=== PATIENT | male | born 1990 | race Caucasian/White ===

== ENCOUNTER → 2019-02-26 | Outpatient (CLI) | payer OTHER ==
--- NOTE | 2019-02-27 07:50 | XR ---
EXAMINATION TYPE: XR chest 2V DATE OF EXAM: 02/26/2019 COMPARISON: Prior chest x-ray 02/21/2013 HISTORY: Renal cell carcinoma TECHNIQUE: Frontal and lateral views of the chest are obtained. FINDINGS: There is no focal air space opacity, pleural effusion, or pneumothorax seen. The cardiac silhouette size is within normal limits. The osseous structures are intact. Mild elevation of the r ight hemidiaphragm was noted on prior exam. IMPRESSION: No acute cardiopulmonary process.
== END | disposition home or self-care (01) ==
LOC: LABWHC1 07:04
PROVIDERS: ATTEND Urology
DX: C62.91 Malignant neoplasm of right testis, unspecified whether descended or undescended (principal)
CPT/HCPCS: 36415; 71046; 82105; 83615

== ENCOUNTER 2021-06-06 00:38 | Emergency (ER) | payer BC, OTHER ==
[2021-06-06 00:43] VITALS: TEMP 97.9
[2021-06-06] MEDS ORDERED: SODIUM CHLORIDE 0.9% 1,000 ML IV STA (00:55)
--- NOTE | 2021-06-06 00:56 | ED ---
Chest Pain HPI - General Chief Complaint: Chest Pain Stated Complaint: Chest Pain Time Seen by Provider: 06/06/21 00:51 Source: patient, RN notes reviewed, old records reviewed Mode of arrival: ambulatory Limitations: no limitations - History of Present Illness Initial Comments: This is a 31-year-old male to the emergency department for evaluation of chest pain 2 days of chest pain left-sided chest pain left back left shoulder left arm.. Patient has been going on for 2 days. Also abdominal pain back pain shoulder pain left arm pain. No traumas no fevers no cough or congestion of travel history no sick contacts no dysuria no problem bowel movements. MD Complaint: chest pain -: days(s) Onset: during rest, during exertion Pain Location: left chest Pain Radiation: LUE Severity: moderate Quality: sharp Consistency: constant Improves With: nothing Worsens With: nothing Anginal Symptoms: dyspnea Other Symptoms: palpitations Treatments Prior to Arrival: none - Related Data Allergies Allergy/AdvReac Type Severity Reaction Status Date / Time No Known Allergies Allergy Verified 06/06/21 00:43 Review of Systems ROS Statement: Those systems with pertinent positive or pertinent negative responses have been documented in the HPI. ROS Other: All systems not noted in ROS Statement are negative. EKG Findings - EKG Comments: EKG Findings:: EKG sinus tachycardia 108 OK 149 QRS 73 QTC 388 Past Medical History Additional Past Medical History / Comment(s): testicular cancer History of Any Multi-Drug Resistant Organisms: None Reported Past Psychological History: No Psychological Hx Reported Smoking Status: Never smoker Past Alcohol Use History: Occasional Past Drug Use History: None Reported General Exam General appearance: alert, in no apparent distress, anxious Head exam: Present: atraumatic, normocephalic, normal inspection Eye exam: Present: normal appearance, PERRL, EOMI. Absent: scleral icterus, conjunctival injection, periorbital swelling ENT exam: Present: normal exam, mucous membranes moist Neck exam: Present: normal inspection. Absent: tenderness, meningismus, lymphadenopathy Respiratory exam: Present: normal lung sounds bilaterally. Absent: respiratory distress, wheezes, rales, rhonchi, stridor Cardiovascular Exam: Present: normal rhythm, tachycardia, normal heart sounds. Absent: systolic murmur, diastolic murmur, rubs, gallop, clicks GI/Abdominal exam: Present: soft, normal bowel sounds. Absent: distended, tenderness, guarding, rebound, rigid Extremities exam: Present: normal inspection, full ROM, normal capillary refill. Absent: tenderness, pedal edema, joint swelling, calf tenderness Back exam: Present: normal inspection Neurological exam: Present: alert, oriented X3, CN II-XII intact Psychiatric exam: Present: normal affect, normal mood Skin exam: Present: warm, dry, intact, normal color. Absent: rash Course Vital Signs 06/06/21 06/06/21 00:39 02:09 Temperature 97.9 F Pulse Rate 109 H 80 Respiratory 19 18 Rate Blood Pressure 147/96 145/92 O2 Sat by Pulse 98 98 Oximetry - Reevaluation(s) Reevaluation #1: 06/06/21 03:20 Medical record is reviewed Reevaluation #2: 06/06/21 03:20 Patient's pain is improved Reevaluation #3: 06/06/21 03:20 Patient informed results and questions answered Reevaluation #4: Studies CT angios chest is negative for acute disease Chest Pain MDM - MDM 31 male with nonspecific pain chest pain back pain shoulder pain. No acute findings for patient's symptoms and can be discharged home Disposition Clinical Impression: Chest pain, Atypical chest pain, Abdominal pain Disposition: HOME SELF-CARE Condition: Good Instructions (If sedation given, give patient instructions): Chest Pain (ED), Abdominal Pain (ED) Is patient prescribed a controlled substance at d/c from ED?: No Referrals: Jp Strauss MD [Primary Care Provider] - 1-2 days
[2021-06-06 01:19] LABS: Basophils % (A) 0 %; Eosinophils # (A) 0.6 k/uL (0-0.7); Eosinophils % (A) 8 %; HCT 43.6 % (39.0-53.0); HGB 15.1 gm/dL (13.0-17.5); Lymphocytes % (A) 14 %; MCH 28.7 pg (25.0-35.0); MCHC 34.7 g/dL (31.0-37.0); MCV 82.8 fL (80.0-100.0); Mean Platelet Volume 6.8; Monocytes # (A) 0.3 k/uL (0-1.0); Monocytes % (A) 5 %; Neutrophils # (A) 5.2 k/uL (1.3-7.7); Neutrophils % (A) 72 %; Platelet Count 275 k/uL (150-450); RBC 5.27 m/uL (4.30-5.90); WBC 7.2 k/uL (3.8-10.6)
[2021-06-06] MEDS ORDERED: MORPHINE SULFATE 4 MG/ML SYRINGE IVP STA (01:31)
[2021-06-06] MEDS ORDERED: KETOROLAC 15 MG/ML 1 ML VIAL IVP STA (01:31)
[2021-06-06] MEDS ORDERED: ONDANSETRON 4 MG/2 ML VIAL IVP STA (01:31)
--- NOTE | 2021-06-06 01:33 | CT ---
EXAMINATION TYPE: CT angio chest DATE OF EXAM: 06/06/2021 COMPARISON: None HISTORY: R/O PE CT DLP: 613.20 mGycm Automated exposure control for dose reduction was used. CONTRAST: Performed with IV Contrast, patient injected with 70 mL of Isovue 370. Images obtained from the thoracic inlet to the diaphragm with IV contrast. There are Three-D postproc essed images. The lungs are clear of infiltrate. There is no pleural effusion. There is no mediastinal adenopathy. There is no pericardial effusion. Thoracic aorta is intact. No aneurysm or dissection. There is 1.5 cm right bronchial lymph node. There is normal contrast opacification of the pulmonary a rteries. There are no filling defects. The thoracic spine is intact. There is no compression fracture. Sternum is intact. The upper abdomina l soft tissues appear intact. IMPRESSION: Negative CT scan of the chest. No evidence of pulmonary embolism.
[2021-06-06 01:35] LABS: Potassium 3.5 mmol/L (3.5-5.1)
[2021-06-06 01:36] LABS: ALT 58 U/L (4-49); AST 35 U/L (17-59); African American GFR (CKD) >90 (>60 ml/min/1.73 sqM); Albumin 4.6 g/dL (3.5-5.0); Alkaline Phosphatase 62 U/L (38-126); Anion Gap 11 mmol/L; Blood Urea Nitrogen 18 mg/dL (9-20); Calcium 9.1 mg/dL (8.4-10.2); Carbon Dioxide 23 mmol/L (22-30); Chloride 103 mmol/L (98-107); Glucose 151 mg/dL (74-99); Lipase 94 U/L (23-300); Magnesium 1.8 mg/dL (1.6-2.3); Non-African American GFR(CKD) >90 (>60 ml/min/1.73 sqM); Sodium 137 mmol/L (137-145); Total Bilirubin 0.9 mg/dL (0.2-1.3); Total Protein 7.6 g/dL (6.3-8.2)
[2021-06-06 01:38] LABS: INR 0.9 (<1.2); Partial Thromboplastin Time 26.2 sec (22.0-30.0); Prothrombin Time 10.1 sec (9.0-12.0)
[2021-06-06 02:10] VITALS: RESP 18
[2021-06-06 03:09] LABS: C Reactive Protein 4.7 mg/dL (<1.0)
[2021-06-06 03:32] VITALS: BP 140/85; PULSE 72
== END 2021-06-06 03:35 | disposition home or self-care (01) ==
LOC: EC 00:38
DX: R07.89 Other chest pain (principal); R10.9 Unspecified abdominal pain
CPT/HCPCS: 36415; 85379; 83880; 80053; 83615; 83690; 83735; 84484; 85025; 85610; 85730; 86140; 71275; 99285; 96374; 96375; 96361; J2270; J2405; J1885; Q9967

== ENCOUNTER → 2022-04-04 | Outpatient (CLI) | payer BC | END | disposition home or self-care (01) | LOC: LABWHC1 15:18 | PROVIDERS: ATTEND Urology | DX: C62.90 Malignant neoplasm of unspecified testis, unspecified whether descended or undescended (principal) | CPT/HCPCS: 36415; 82105; 83615 ==

== ENCOUNTER → 2022-04-05 | Outpatient (CLI) | payer BC ==
--- NOTE | 2022-04-05 18:05 | US ---
EXAMINATION TYPE: US scrotum with doppler. Grayscale and color Doppler Duplex imaging performed of leonidas mendiola scrotum. DATE OF EXAM: 04/05/2022 COMPARISON: NONE CLINICAL HISTORY: C62.9 TESTIS CA. Hx of testicular cancer 10 years ago and had the right testical re moved. Patient states he has been having pain x [address] felt a lump. EXAM MEASUREMENTS: TESTICLES: Left Testicle: 4.5 x 3.3 x 2.6 cm Right Testicle: Surgically removed EPIDIDYMIS HEAD: Left Epididymis: Surgically removed Right Epididymis: 1.1 cm Doppler performed to assess for testicular vascularity; good bilateral color flow and waveforms are s een. There is no evidence of testicular torsion. Presence of hydroceles: Small one on left side Presence of varicoceles: No Isoechoic mass with vascularity visualized in mid left testicle measuring 3.4 x 2.4 x 1.9cm IMPRESSION: There is a solid rounded mass in the left testicle suspicious for tumor. Follow-up is recommended.
== END | disposition home or self-care (01) ==
LOC: RADUSWWP 17:06
PROVIDERS: ATTEND Urology
DX: N50.89 Other specified disorders of the male genital organs (principal); C62.90 Malignant neoplasm of unspecified testis, unspecified whether descended or undescended
CPT/HCPCS: 76870; 93975

== ENCOUNTER → 2022-04-10 | Outpatient (CLI) | payer BC ==
--- NOTE | 2022-04-10 15:49 | CT ---
EXAMINATION TYPE: CT ChestAbdPelvis w con CT DLP: 1769.9 mGycm, Automated exposure control for dose reduction was used. DATE OF EXAM: 04/10/2022 3:18 PM COMPARISON: CTA chest 06/06/2021, scrotal ultrasound 04/05/2022. CLINICAL INDICATION:Male, 32 years old with history of C62.10 MALIGNANT NEOPLASM OF UNSPECIFIED DESCE NDED; [facility], Hx of right side testicular CA. Testicle was removed. Now pt had Left side testicular CA. Technique: Multiple axial images of the chest, abdomen, and pelvis were obtained following the intrav enous administration of 70 mL Isovue-300. Oral contrast was administered. Two-dimensional coronal and sagittal reconstructions were obtained. Findings: CHEST: LUNGS/ PLEURA: No pleural effusion, pneumothorax, focal consolidation. No suspicious pulmonary nodule or mass. AIRWAY: Patent and unremarkable.. HEART: Size within normal limits. No pericardial effusion. MEDIASTINUM: No evidence of adenopathy. VASCULATURE: No aortic aneurysm. MUSCULOSKELETAL: No acute osseous abnormalities. No aggressive osseous lesion. SOFT TISSUES/LYMPH NODES: Unremarkable. LOWER NECK: No significant findings. ABDOMEN: ABDOMEN LIVER: Unremarkable GALLBLADDER AND BILE DUCTS: Gallbladder is contracted. No biliary duct dilatation. PANCREAS: Unremarkable. SPLEEN: Unremarkable. ADRENAL GLANDS: Unremarkable. KIDNEYS AND URETERS: No evidence of hydronephrosis or renal calculus. The ureters are unremarkable. PELVIS BLADDER: Unremarkable REPRODUCTIVE: Post surgical changes from right orchiectomy with left testicle demonstrated in the scr otal sac. ABDOMEN & PELVIS STOMACH AND BOWEL: Stomach and duodenum are unremarkable. Distal colonic diverticulosis without evide nce for acute diverticulitis. The appendix is within normal limits. No evidence of bowel obstruction. PERITONEUM: No evidence of pneumoperitoneum or free fluid. VASCULATURE: No evidence of aortic aneurysm. MUSCULOSKELETAL: No acute osseous abnormalities. No aggressive osseous lesion. LYMPH NODES: No pathologically enlarged lymph nodes greater than 1 cm short axis. No pathologic retro peritoneal or inguinal adenopathy. SOFT TISSUE/ABDOMINAL WALL: Tiny fat filled hernia. IMPRESSION: 1. No evidence for metastasis within the chest, abdomen and pelvis. 2. No pathologically enlarged lymph nodes.
== END | disposition home or self-care (01) ==
LOC: RADCTMAIN 13:28
PROVIDERS: ATTEND Urology
DX: C62.12 Malignant neoplasm of descended left testis (principal)
CPT/HCPCS: 71260; 74177; Q9967 ×2

== ENCOUNTER → 2022-04-11 | Outpatient (CLI) | payer BC ==
[2022-04-12 01:41] LABS: Basophils # (A) 0.11 X 10*3/uL (0.00-0.10); Basophils % (A) 1.4 %; Eosinophils # (A) 0.56 X 10*3/uL (0.04-0.35); Eosinophils % (A) 7.4 %; HCT 43.3 % (39.6-50.0); Immature Grans, Automated 0.4 %; Lymphocytes # (A) 2.05 X 10*3/uL (0.90-5.00); Lymphocytes % (A) 26.9 %; MCH 27.8 pg (27.0-32.0); MCHC 32.3 g/dL (32.0-37.0); MCV 86.1 fL (80.0-97.0); Mean Platelet Volume 9.5 fL (9.5-12.2); Monocytes # (A) 0.49 X 10*3/uL (0.20-1.00); Monocytes % (A) 6.4 %; NRBC Per 100 WBC 0 /100 WBCS (0.0-0.0); Neutrophils # (A) 4.37 X 10*3/uL (1.80-7.70); Neutrophils % (A) 57.5 %; Platelet Count 301 X 10*3/uL (140-440); RBC 5.03 X 10*6/uL (4.40-5.60); RDW 13.2 % (11.5-14.5); WBC 7.61 X 10*3/uL (4.50-10.00)
[2022-04-12 03:39] LABS: African American GFR (CKD) 113.3 (60.0-200.0); Albumin 4.7 g/dL (3.8-4.9); Albumin/Globulin Ratio 1.96 (1.60-3.17); Anion Gap 14.1 mmol/L (10.00-18.00); BUN/Creat Ratio 10.3 Ratio (12.00-20.00); Blood Urea Nitrogen 10.3 mg/dL (9.0-27.0); Calcium 9.6 mg/dL (8.7-10.3); Carbon Dioxide 24.9 mmol/L (20.0-27.5); Globulin 2.4 g/dL (1.6-3.3); Non-African American GFR(CKD) 97.8 (60.0-200.0); Potassium 4.1 mmol/L (3.5-5.5); Total Bilirubin 0.3 mg/dL (0.30-1.20); Total Protein 7.1 g/dL (6.2-8.2)
== END | disposition home or self-care (01) ==
LOC: LABPAT 14:31
PROVIDERS: ATTEND Urology
DX: Z01.812 Encounter for preprocedural laboratory examination (principal); C62.10 Malignant neoplasm of unspecified descended testis
CPT/HCPCS: 80053; 85025

== ENCOUNTER → 2022-09-22 | Outpatient (CLI) | payer BC ==
--- NOTE | 2022-09-22 12:46 | XR ---
EXAMINATION TYPE: XR chest 2V DATE OF EXAM: 09/22/2022 COMPARISON: 02/26/2019 TECHNIQUE: PA and lateral views submitted. HISTORY: Testicular cancer FINDINGS: The lungs are clear and there is no pneumothorax, pleural effusion, or focal pneumonia. Heart size normal and no overt failure. Osseous structures intact. IMPRESSION: 1. No acute process.
== END | disposition home or self-care (01) ==
LOC: RADXRMAIN 11:24
PROVIDERS: ATTEND Urology
DX: C62.10 Malignant neoplasm of unspecified descended testis (principal)
CPT/HCPCS: 71046

== ENCOUNTER → 2022-09-22 | Outpatient (CLI) | payer BC ==
[2022-09-22 21:00] LABS: ALT 35 U/L (10-49); AST 25 U/L (14-35); Albumin 4.9 d/dL (3.8-4.9); Albumin/Globulin Ratio 1.75 Ratio (1.60-3.17); Alkaline Phosphatase 67 U/L (41-126); Bilirubin, Conjugated <0.20 mg/dL (0.20-0.40); Bilirubin,Unconjugated >0.10 mg/dL (0.20-1.00); Estradiol 40.1 pg/mL; Globulin 2.8 d/dL (1.6-3.3); LDH 189 U/L (120-246); Total Bilirubin 0.3 mg/dL (0.3-1.2); Total Protein 7.7 d/dL (6.2-8.2)
[2022-09-22 21:45] LABS: HCT 48.5 % (39.6-50.0); HGB 15.6 d/dL (12.0-15.0); MCH 26.9 pg (27.0-32.0); MCHC 32.2 d/dL (32.0-37.0); MCV 83.8 FL (80.0-97.0); Mean Platelet Volume 10.2 FL (9.5-12.2); NRBC Per 100 WBC 0 X 10*3/uL (0.00-0.01); Platelet Count 344 X 10*3/uL (140-440); RBC 5.79 X 10*6/uL (4.40-5.60); RDW 13.1 % (11.5-14.5); WBC 5.63 X 10*3/uL (4.50-10.00)
== END | disposition home or self-care (01) ==
LOC: LABWHC1 11:18
PROVIDERS: ATTEND Urology
DX: C62.10 Malignant neoplasm of unspecified descended testis (principal); E29.1 Testicular hypofunction
CPT/HCPCS: 36415; 80076; 82105; 82670; 83615; 84402; 84403; 85027

== ENCOUNTER 2023-01-31 14:11 | Emergency (ER) | payer BC ==
[2023-01-31] MEDS ORDERED: PROPARACAINE 0.5% OPHTH DROPS 15 ML BTL BOTH EYES STA (14:52)
[2023-01-31] MEDS ORDERED: FLUORESCEIN STRIPS 1 MG STRIP BOTH EYES ONE (14:52)
[2023-01-31] MEDS ORDERED: DEXAMETHASONE SOD PHOSPHATE 10 MG/ML 1 ML VIAL IM STA (15:18)
--- NOTE | 2023-01-31 15:22 | ED ---
Eye Problem HPI - General Chief complaint: Eye Problems Stated complaint: post op-vision loss Time Seen by Provider: 01/31/23 14:40 Source: patient, family, RN notes reviewed Mode of arrival: ambulatory Limitations: no limitations - History of Present Illness Initial comments: This is a 33-year-old male who presents to the emergency department for bilate ral eye redness. States that he had hernia surgery yesterday and when he woke up this morning he developed pain and redness to both eyes. States that this made it difficult for him to open his eyes. He called the surgeon who advised taking Benadryl, and if that was not effective to come to the emergency department for further evaluation. Patient denies any history of this with prior surgeries. He would not describe the eyes as itchy, and describes them as burning. Unsure if he has visual changes or blurry vision, because he is having difficulty opening the eyes. He is not a contact lens wearer. Denies any injuries to the eyes or coming into contact with chemicals. MD chief complaint: eye pain, eye redness - Related Data Previous Rx's Medication Instructions Recorded HYDROcodone/APAP 5-325MG [[place] 1 - 2 tab PO Q4HR PRN #6 tab 04/13/22 5-325] Ketorolac [Toradol] 10 mg PO Q6HR PRN #10 tab 04/13/22 Allergies Allergy/AdvReac Type Severity Reaction Status Date / Time No Known Allergies Allergy Verified 01/31/23 14:17 Review of Systems ROS Statement: Those systems with pertinent positive or pertinent negative responses have been documented in the HPI. ROS Other: All systems not noted in ROS Statement are negative. Past Medical History Past Medical History: Cancer Additional Past Medical History / Comment(s): hx. testicular cancer right side- had surg. & lymph node dissection & chemo 13 yrs. ago, new dx. cancer left testicle History of Any Multi-Drug Resistant Organisms: None Reported Past Surgical History: Orthopedic Surgery Additional Past Surgical History / Comment(s): right orchiectomy &lymph node dissection, left rotator cuff repair Past Anesthesia/Blood Transfusion Reactions: No Reported Reaction Past Psychological History: No Psychological Hx Reported Smoking Status: Never smoker Past Alcohol Use History: Occasional Past Drug Use History: None Reported - Past Family History Mother Family Medical History: No Reported History General Exam Limitations: no limitations General appearance: alert, in no apparent distress Head exam: Present: atraumatic, normocephalic, normal inspection Eye exam: Present: PERRL, EOMI, other (Bilateral conjunctival injection.) Expanded IOP (R) in mmH IOP (L) in mmH IOP measured with: Tonopen Respiratory exam: Present: normal lung sounds bilaterally. Absent: respiratory distress, wheezes, rales, rhonchi, stridor Cardiovascular Exam: Present: regular rate, normal rhythm, normal heart sounds. Absent: systolic murmur, diastolic murmur, rubs, gallop, clicks Neurological exam: Present: alert, oriented X3, CN II-XII intact Psychiatric exam: Present: normal affect, normal mood Skin exam: Present: warm, dry, intact, normal color. Absent: rash Course Vital Signs 01/31/23 01/31/23 14:15 15:57 Temperature 98 F 98.3 F Pulse Rate 102 H 96 Respiratory 18 16 Rate Blood Pressure 159/88 143/89 O2 Sat by Pulse 100 97 Oximetry Medical Decision Making - Medical Decision Making This is a 33-year-old male who presents to the emergency department for bilateral eye pain and redness. Was pt. sent in by a medical professional or institution? @ -No Did you speak to anyone other than the patient for history? @ -No Did you review nursing and triage notes? @ -Yes, and I agree, it is accurate with regards to the patient's symptoms. Were old charts reviewed? @ -No Differential Diagnosis? @ -Differential Eye Pain: Conjuncitivitis (viral, bacterial, allergic), corneal abrasion, foreign body, iritis, uveitis, keratitis, acute angle closure glaucoma, this is not meant to be an all-inclusive list. EKG interpreted by me (3pts min.)? @ -Not obtained X-rays interpreted by me (1pt min.)? @ -Not obtained CT interpreted by me (1pt min.)? @ -Not obtained U/S interpreted by me (1pt. min.)? @ -Not obtained What testing was considered but not performed? (CT, X-rays, U/S, labs)? Why? @ -None What meds were considered but not given? Why? @ -None Did you discuss the management of the patient with other professionals? @ -No Did you reconcile home meds? @ -No Was smoking cessation discussed for >3mins.? @ -No Was critical care preformed (if so, how long)? @ -No Were there social determinants of health that impacted care today? How? (Homelessness, low income, unemployed, alcoholism, drug addiction, transportation, low edu. Level, literacy, decrease access to med. care, half-way, rehab)? @ -No Was there de-escalation of care discussed even if they declined? (Discuss DNR or withdrawal of care, Hospice)? @ -No What co-morbidities impacted this encounter? (DM, HTN, Smoking, COPD, CAD, Cancer, CVA, Hep., AIDS, mental health diagnosis, sleep apnea, morbid obesity)? @ -None Was patient admitted / discharged? @ -Discharged. Physical examination reveals bilateral conjunctival injection. Eye pressures were within normal limits bilaterally. Fluorescein staining revealed no evidence of corneal abrasion. It is possible that this is an allergic or viral conjunctivitis unrelated to the surgery, or it could be irritation from the surgery if his eyes were not closed all of the way or exposed to an irritating substance. Will treat the patient with antibiotic eye drops in the event there is a bacterial component. He was given bottles of polytrim and ketorolac eyedrops in the emergency department with dosing instructions reviewed for further management of symptoms. Also discussed [id number] allergy and lubricating eyedrops. He was given information for opthalmology follow up. Advised he contact them for follow-up appointment if symptoms do not improve. Undiagnosed new problem with uncertain prognosis? @ -None Drug Therapy requiring intensive monitoring for toxicity (Heparin, Nitro, I nsulin, Cardizem)? @ -None Were any procedures done? @ -None Diagnosis/symptom? @ -Bilateral conjunctivitis Acute, or Chronic, or Acute on Chronic? @ -Acute Uncomplicated (without systemic symptoms) or Complicated (systemic symptoms)? @ -Uncomplicated Side effects of treatment? @ -None Exacerbation, Progression, or Severe Exacerbation] @ -Not applicable Poses a threat to life or bodily function? @ -Unlikely Return precautions reviewed in depth, the patient is instructed to return to the emergency department with any new, worsening, or concerning symptoms. Patient verbalized understanding. This case was discussed in detail with the attending ED physician, Dr. Gloria. Presentation, findings, and treatment plan discussed in detail as well. Disposition Clinical Impression: Bilateral conjunctivitis Disposition: HOME SELF-CARE Instructions (If sedation given, give patient instructions): Conjunctivitis (ED) Additional Instructions: Return to the emergency department with any new, worsening, or concerning symptoms. Apply the Polytrim drops provided as one drop to both eyes every 3 hours while awake for 7 days. You can use the ketorolac eyedrops provided as one drop to both eyes every 6 hours as needed for pain relief. He can also consider using allergy or lubricating eyedrops [id number]. Contact ophthalmology as listed below for a follow-up appointment if symptoms do not improve. Is patient prescribed a controlled substance at d/c from ED?: No Referrals: None,Stated [Primary Care Provider] - 1-2 days Umair Davis MD [STAFF PHYSICIAN] - 1-2 days
[2023-01-31] MEDS ORDERED: POLYMYXIN B-TRIMETHOPRIM SULF (10,000-1) OPHTH DROPS 10 ML BTL BOTH EYES ONE (15:40)
[2023-01-31] MEDS ORDERED: KETOROLAC 0.5% OPHTH DROPS 5 ML BTL BOTH EYES ONE (15:40)
[2023-01-31 16:02] VITALS: BP 143/89; PULSE 96; RESP 16; TEMP 98.3
== END 2023-01-31 15:58 | disposition home or self-care (01) ==
LOC: EC 14:11
DX: H10.33 Unspecified acute conjunctivitis, bilateral (principal)
CPT/HCPCS: 99283; 96372; J1100

== ENCOUNTER → 2023-04-20 | Outpatient (CLI) | payer BC ==
[2023-04-20 14:42] LABS: Albumin 4.6 g/dL (3.5-5.0); Albumin/Globulin Ratio 1.6; Bilirubin,Unconjugated 0.3 mg/dL (0.0-1.1); Globulin 2.8 g/dL; Total Bilirubin 0.5 mg/dL (0.2-1.3); Total Protein 7.4 g/dL (6.3-8.2)
[2023-04-20 21:03] LABS: HCT 44.4 % (39.6-50.0); HGB 14.3 g/dL (13.0-17.0); MCH 27.1 pg (27.0-32.0); MCHC 32.2 g/dL (32.0-37.0); MCV 84.3 FL (80.0-97.0); Mean Platelet Volume 9.9 FL (9.5-12.2); NRBC Per 100 WBC 0 X 10*3/uL (0.00-0.01); Platelet Count 285 X 10*3/uL (140-440); RBC 5.27 X 10*6/uL (4.40-5.60); RDW 12.8 % (11.5-14.5); WBC 5.27 X 10*3/uL (4.50-10.00)
[2023-04-20 21:10] LABS: Estradiol 23.6 pg/mL
== END | disposition home or self-care (01) ==
LOC: LABWHC1 13:34
PROVIDERS: ATTEND Urology
DX: C62.10 Malignant neoplasm of unspecified descended testis (principal); E29.1 Testicular hypofunction
CPT/HCPCS: 36415; 80076; 82105; 82670; 83615; 84402; 84403; 85027

== ENCOUNTER → 2023-04-20 | Outpatient (CLI) | payer BC ==
--- NOTE | 2023-04-20 14:29 | XR ---
EXAMINATION TYPE: XR chest 2V DATE OF EXAM: 04/20/2023 2:20 PM CLINICAL INDICATION:Male, 33 years old with history of C62.1 MALIGNANT NEOPLASM OF UNSPECIFIED DESCEN DED; PH[facility] COMPARISON: Chest radiographs from TECHNIQUE: XR chest 2V Frontal and lateral views of the chest. FINDINGS: Lungs/Pleura: There is no evidence of pleural effusion, focal consolidation, or pneumothorax. Pulmonary vascularity: Unremarkable. Heart/mediastinum: Cardiomediastinal silhouette is unremarkable. Musculoskeletal: No acute osseous pathology. Other findings: None IMPRESSION: No acute cardiopulmonary disease/process.
== END | disposition home or self-care (01) ==
LOC: RADXRMAIN 14:07
PROVIDERS: ATTEND Urology
DX: C62.10 Malignant neoplasm of unspecified descended testis (principal)
CPT/HCPCS: 71046

== ENCOUNTER → 2023-09-06 | Outpatient (CLI) | payer BC ==
--- NOTE | 2023-09-06 11:10 | XR ---
EXAMINATION TYPE: XR chest 2V DATE OF EXAM: 09/06/2023 9:58 AM CLINICAL INDICATION:Male, 33 years old with history of C62.10 MALIGNANT NEOPLASM OF UNSPECIFIED DESCE NDED; PHH COMPARISON: Chest radiographs from 04/20/2023 TECHNIQUE: XR chest 2V Frontal and lateral views of the chest. FINDINGS: Lungs/Pleura: There is no evidence of pleural effusion, focal consolidation, or pneumothorax. Pulmonary vascularity: Unremarkable. Heart/mediastinum: Cardiomediastinal silhouette is unremarkable. Musculoskeletal: No acute osseous pathology. IMPRESSION: No acute cardiopulmonary disease/process.
[2023-09-06 15:00] LABS: HCG,Quantitative Serum <3.0 mIU/mL (0.0-6.0); LDH 185 U/L (120-246)
== END | disposition home or self-care (01) ==
LOC: RADXRMAIN 09:41
PROVIDERS: ATTEND Urology
DX: C62.10 Malignant neoplasm of unspecified descended testis (principal)
CPT/HCPCS: 71046; 82105; 83615; 84702

== ENCOUNTER → 2024-02-21 | Outpatient (CLI) | payer BC ==
--- NOTE | 2024-02-21 15:56 | XR ---
EXAMINATION TYPE: XR chest 2V DATE OF EXAM: 02/21/2024 2:53 PM COMPARISON: Chest radiographs from 09/06/2023 CLINICAL INDICATION: Male, 34 years old with history of C62.1; PHH TECHNIQUE: XR chest 2V Frontal and lateral views of the chest. FINDINGS: Lungs/Pleura: There is no evidence of pleural effusion, focal consolidation, or pneumothorax. Pulmonary vascularity: Unremarkable. Heart/mediastinum: Cardiomediastinal silhouette is unremarkable. Musculoskeletal: No acute osseous pathology. IMPRESSION: No acute cardiopulmonary disease/process. [facility], , 02/21/2024 3:54 PM
--- NOTE | 2024-02-21 17:13 | MR ---
EXAMINATION TYPE: MR lumbar spine wo con DATE OF EXAM: 02/21/2024 4:58 PM COMPARISON: None. CLINICAL INDICATION: Male, 34 years old with history of R10.9 Unspecified abdominal pain; M54.40, low back pain for 1.5 years TECHNIQUE: Multiplanar, multisequence images of the lumbar spine were acquired. IV Contrast: mL (None, if empty) FINDINGS: Cord ends at the L1 L5-S1: There is a large broad base central disc herniation with extension beyond the endplate of S1. This has mild anterior thecal sac compression. L4-L5: Minimal flattening of the anterior thecal sac is present from disc at this level. No spinal ca nal stenosis. Neural foramen are patent. L3-L4: No focal disc herniation or significant disc bulge. No spinal canal stenosis. Neural foramen are patent. L2-L3: No focal disc herniation or significant disc bulge. No spinal canal stenosis. Neural foramen are patent. L1-L2: No focal disc herniation or significant disc bulge. No spinal canal stenosis. Neural foramen are patent. T12-L1: No focal disc herniation or significant disc bulge. No spinal canal stenosis. Neural forame n are patent. IMPRESSION: 1. Large central disc herniation L5-S1 with mild anterior thecal sac contact. No stenosis is evident. [facility], Workstation: [email or web address], 02/21/2024 5:10 PM
--- NOTE | 2024-02-21 19:09 | CT ---
EXAMINATION TYPE: CT abdomen pelvis w con DATE OF EXAM: 02/21/2024 4:46 PM COMPARISON: 04/10/2019 CLINICAL INDICATION: Male, 34 years old with history of R10.9 Unspecified abdominal pain; M54.40, Hx of testicular CA. TECHNIQUE: Axial images were obtained from above the diaphragm to the pubic rami in the axial plane a t 5 mm thick sections. Reconstructed images are reviewed on the computer in the coronal plane. CONTRAST: 100 ml mL of Isovue 300. Study performed with Oral Contrast DLP: 1311.8 mGycm, Automated exposure control for dose reduction was used. FINDINGS: Limited CT sections are obtained the lung bases. The lung bases are clear. CT ABDOMEN: Liver: Normal Spleen: Normal Pancreas: Normal Adrenal glands: The adrenal glands are normal. Gallbladder: Normal Kidneys: No masses are evident. No hydronephrosis is present. No cysts are present. No renal stone s evident. Aorta: Vascular calcification is within the aorta. Inferior vena cava: Normal. CT PELVIS: Loops of bowel within the abdomen and pelvis are normal. A few diverticula are present without acute diverticulitis within the sigmoid colon. This study is lateral contrast limiting evaluation. Appendix: Normal as visualized. Urinary bladder: Normal. Genitourinary structures: Prostate is unremarkable. Osseous structures: No suspicious lytic or sclerotic lesions. Lymphadenopathy: No suspicious lymphadenopathy is evident. Surgical clips are at the renal vein level . No lymphadenopathy identified in this region. No periaortic or retrocaval adenopathy. No iliac rosa elena n adenopathy evident. Inguinal regions appear unremarkable scattered small lymph nodes. These were pr esent previously. IMPRESSION: 1. No suspicious changes to suggest metastatic testicular cancer within the [id number]. 2. Diverticulosis without acute diverticulitis sigmoid colon [facility], Workstation: [facility], 02/21/2024 7:06 PM
[2024-02-21 22:18] LABS: HCG,Quantitative Serum <3.0 mIU/mL (0.0-6.0); LDH 164 U/L (120-246)
== END | disposition home or self-care (01) ==
LOC: RADCTMAIN 14:33
PROVIDERS: ATTEND Family Medicine
DX: C62.10 Malignant neoplasm of unspecified descended testis (principal); M54.17 Radiculopathy, lumbosacral region; K57.30 Diverticulosis of large intestine without perforation or abscess without bleeding; Z85.47 Personal history of malignant neoplasm of testis
CPT/HCPCS: 83615; 84702; 82105; 71046; 74177; 72148; Q9967